=== PATIENT | female | born 1980 | race Caucasian/White ===

== ENCOUNTER 2020-07-08 09:26 | Outpatient (CLI) | payer BC ==
[~2020-07-08 09:26] MED LIST: FERUMOXYTOL (NON-ESRD) 510 MG/NS 100 ML IV PRN; NORMAL SALINE 250 ML IV PRN
[2020-07-08 10:00] VITALS: BP 116/81
== END 2020-07-08 11:00 | disposition home or self-care (01) ==
LOC: II 09:26 → 5TH 09:59 → II 11:00
PROVIDERS: ATTEND Internal Medicine Hematology & Oncology
DX: D50.9 Iron deficiency anemia, unspecified (principal); K90.9 Intestinal malabsorption, unspecified
CPT/HCPCS: 96365; Q0138; J7050

== ENCOUNTER 2020-07-15 09:00 | Outpatient (CLI) | payer BC ==
[2020-07-15 09:35] VITALS: BP 119/73
== END 2020-07-15 10:30 | disposition home or self-care (01) ==
LOC: II 09:00 → 5TH 09:12 → II 10:30
PROVIDERS: ATTEND Internal Medicine Hematology & Oncology
DX: D50.9 Iron deficiency anemia, unspecified (principal); K90.9 Intestinal malabsorption, unspecified
CPT/HCPCS: 96365; Q0138; J7050

== ENCOUNTER 2020-10-01 07:57 | Outpatient (CLI) | payer BC ==
[2020-10-01 08:06] VITALS: BP 112/78
--- OUTSIDE RECORDS SUMMARY | 2020-10-04 08:55 | XMS REPORT ---
:1980 [facility] [address] [place] [address] Care Team Providers Name Role Phone Susi Ruiz M.D. Attending Clinician Unavailable Allergies, Adverse Reactions, Alerts Allergy Name Allergy Status Severity Reaction(s) Onset Inactive Treat ing Comments Type Date Date Clinician Acetaminophen Allergy to Active substance Amoxicillin Allergy to Active substance Codeine Allergy to Active substance Hydrocodone Allergy to Active substance acetaminophen Allergy to Active Drug (Finding) augmentin Allergy to Active Drug (Finding) Loratadine Allergy to Active Mild Rash substance Loratadine Allergy to Active Skin (Ingredient(s Drug Rashes/Hives ): (Finding) loratadine) Penicillins Allergy to Active substance tessalon Allergy to Active perle Drug (Finding) Potassium Allergy to Active substance Medications Ordered Filled Start Stop Current Ordering Indication Dosage Frequency Signature Comments Components Medication Medication Date Date Medication? Clinician (SIG) Name Name Diane 2020- Yes 510mg 07-08 00:00: 00:00 00 :00 Sodium 2019-0 2020- Yes 250mL Chloride 07-08 00:00: 00:00 00 :00 Folic Acid 2019-0 Yes 1 07-02 00:00: 00 folic acid No folic acid 1 mg tablet 1 mg tablet Wellbutrin No 1 Q1D Wellbutrin XL 150 mg XL 150 mg 24 hr 24 hr tablet, tablet, extended extended release release Take 1 Take 1 tablet tablet every day every day by oral by oral route for route for 30 days. 30 days. Wellbutrin No 1 BID Wellbutrin SR 150 mg SR 150 mg tablet, 12 tablet, 12 hr hr sustained-r sustained- elease Take release 1 tablet Take 1 twice a day tablet by oral twice a route for day by 30 days. oral route Take once for 30 nightly for days. Take the first 3 once days. Then nightly Increase for the dose to first 3 once in the days. Then morning and Increase once dose to nightly. once in Stop the smoking in morning 5-7 days and once from start nightly. of taking Stop medication. smoking in 5-7 days from start of taking medication . B-12 Yes 1 Ibuprofen Yes 1 Vitron-C Yes 1 Problems Condition Condition Condition Status Onset Resolution Last Treatin g Comments Name Details Category Date Date Treatment Clinician Date Cobalamin Cobalamin Problem Active deficiency Deficiency 8-19 00:00: 00 Nutritional Nutritional Diagnosis active anemia anemia 8-14 00:00: 00 Intestinal Intestinal Diagnosis active malabsorpti malabsorpti 8-14 on on 00:00: 00 Iron Iron Diagnosis active deficiency deficiency 8-14 anemia anemia 00:00: 00 Folic acid Folic Acid Problem Active deficiency Deficiency 7-08 00:00: 00 Anemia Anemia Problem Active 708 00:00: 00 Dysmenorrhe Dysmenorrhe Problem Active a a 7-08 00:00: 00 Fatigue Fatigue Problem Active 708 00:00: 00 Procedures Procedure Date / Time Performed Performing Clinician Leta chavez pulse oximetry (PROC) 2020-09-20 00:00:00 pulse oximetry (PROC) 2020-08-31 00:00:00 right knee surgery x3 lumbar surgery tubal ligation tonsillectomy Results Test Description Test Time Test Comments Text Results Atomic Results Result Comments Creatinine 2020-09-09 14:39:00 Test Item Value Reference Range Comments Creatinine (test code = Creatinine) 0.7300 mg/dL 0.5700-1.000 0 Cr Clearance (Est) (test code = Cr Clearance 118.5200 75. 0000-115.0000 (Est)) Glucose (test code = Glucose) 71.0000 mg/dL 65.0000-99.0000 BUN (test code = BUN) 8.0000 mg/dL 6.0000-24.0000 eGFR Trv-Viquofd-Azpzgwxx (test code = eGFR 103.0000 Eqf-Tubqdvg-Wzimbiji) eGFR -[place] (test code = eGFR 118.0000 -[place]) BUN/Creat Ratio (test code = BUN/Creat Ratio) 11.0000 9. 0000-23.0000 Sodium (test code = Sodium) 141.0000 mmol/L 134.0000-144.0000 Potassium (test code = Potassium) 4.2000 mmol/L 3.5000-5.2000 Chloride (test code = Chloride) 108.0000 mmol/L 96.0000-106.0000 CO2 (test code = CO2) 19.0000 mmol/L 20.0000-29.0000 Calcium (test code = Calcium) 9.6000 mg/dL 8.7000-10.2000 Protein, Total (test code = Protein, Total) 6.5000 g/dL 6.00 00-8.5000 Albumin (test code = Albumin) 4.6000 g/dL 3.8000-4.8000 Globulin (test code = Globulin) 1.9000 g/dL 1.5000-4.5000 A/G Ratio (test code = A/G Ratio) 2.4000 1.2000-2.2000 Bilirubin, Total (test code = Bilirubin, Total) 0.9000 mg/dL 0.0000-1.2000 Alkaline Phosphatase (test code = Alkaline 56.0000 39.00 00-117.0000 Phosphatase) AST (SGOT) (test code = AST (SGOT)) 11.0000 0.0000-40.00 00 ALT (SGPT) (test code = ALT (SGPT)) 8.0000 0.0000-32.00 00 Iron, Total (test code = Iron, Total) 122.0000 27.0000-15 9.0000 TIBC (test code = TIBC) 227.0000 250.0000-450.0000 UIBC (test code = UIBC) 105.0000 131.0000-425.0000 % Iron Saturation (test code = % Iron Saturation) 54.0000 % 15.0000-55.0000 Folate (test code = Folate) 6.2000 ng/mL Ferritin (test code = Ferritin) 50.0000 ng/mL 15.0000-150.0000 [id number] 13:16:00 Test Item Value Reference Range Comments WBC (test code = WBC) 10.0000 4.0000-10.0000 Lymphocytes % (test code = Lymphocytes %) 34.9000 % 22.400 0-43.6000 MID% (test code = MID%) 6.5000 % 1.2000-11.1999 Neutrophils % (test code = Neutrophils %) 58.6000 % 48.900 0-69.9000 Lymphocytes (test code = Lymphocytes) 3.4000 1.2000-3.2 000 MID (test code = MID) 0.8000 0.1000-1.1000 Neutrophils (test code = Neutrophils) 5.8000 1.5000-6.7 000 RBC (test code = RBC) 5.4000 3.7000-4.9000 HGB (test code = HGB) 15.3000 g/dL 11.2000-18.0000 HCT (test code = HCT) 44.8000 % 34.0000-44.0000 MCV (test code = MCV) 82.9000 fL 80.0000-94.0000 MCH (test code = MCH) 28.4000 pg 27.0000-34.0000 MCHC (test code = MCHC) 34.2000 g/dL 31.5000-36.0000 RDW (test code = RDW) 17.4000 11.0000-18.0000 PLT (test code = PLT) 268.0000 140.0000-440.0000 MPV (test code = MPV) 9.7000 fL 6.8000-10.6000 Lipid 1996 panel - Serum or [id number] 00:00:00 Test Item Value Reference Range Comments Cholesterol [Mass/volume] in Serum or 185 mg/dL <200 Plasma (test code = 2093-3) Cholesterol in HDL [Mass/volume] in Serum 36 mg/dL > or = 50 or Plasma (test code = 2085-9) Triglyceride [Mass/volume] in Serum or 182 mg/dL <150 Plasma (test code = 2571-8) Cholesterol in LDL [Mass/volume] in Serum 119 mg/dL (calc) or Plasma by calculation (test code = 93390-1) Cholesterol.total/Cholesterol.in HDL [Mass 5.1 (calc) <5.0 ratio] in Serum or Plasma (test code = 9830-1) Cholesterol non HDL [Mass/volume] in Serum 149 mg/dL (calc) <130 or Plasma (test code = 13036-3) Hemoglobin A1c/Hemoglobin.total in [id number] 00:00:00 Test Item Value Reference Range Comments Hemoglobin A1c/Hemoglobin.total in Blood 4.8 % of total HGB <5.7 (test code = 4548-4) Thyrotropin [Units/volume] in Serum or [id number] 00:00:00 Test Item Value Reference Range Comments Thyrotropin [Units/volume] in Serum or Plasma 0.92 mIU/L (test code = 3016-3) Folate+Cyanocobalamin [Interpretation] in Serum or [id number] 00:00:00 Test Item Value Reference Range Comments Cobalamin (Vitamin B12) [Mass/volume] in Serum or 304 pg/mL 200-1100 Plasma (test code = 2132-9) Folate [Mass/volume] in Serum or Plasma (test code 8.6 NG/mL = 2284-8) Lipid 1995 panel - Serum or [id number] 00:00:00 Test Item Value Reference Range Comments Cholesterol [Mass/volume] in Serum or 177 mg/dL <200 Plasma (test code = 2093-3) Cholesterol in HDL [Mass/volume] in Serum 31 mg/dL > or = 50 or Plasma (test code = 2085-9) Triglyceride [Mass/volume] in Serum or 297 mg/dL <150 Plasma (test code = 2571-8) Cholesterol in LDL [Mass/volume] in Serum 106 mg/dL (calc) or Plasma by calculation (test code = 00207-6) Cholesterol.total/Cholesterol.in HDL [Mass 5.7 (calc) <5.0 ratio] in Serum or Plasma (test code = 9830-1) Cholesterol in LDL/Cholesterol in HDL [Mass 3.4 (calc) Ratio] in Serum or Plasma (test code = 61654-8) Cholesterol non HDL [Mass/volume] in Serum 146 mg/dL (calc) <130 or Plasma (test code = 47856-1) iron + TIBC + ferritin, [id number] 00:00:00 Test Item Value Reference Range Comments Iron [Mass/volume] in Serum or Plasma 115 mcg/dL 40-190 (test code = 2498-4) Iron binding capacity [Mass/volume] in 219 mcg/dL (calc) 250-450 Serum or Plasma (test code = 2500-7) Iron saturation [Mass Fraction] in Serum 53 % (calc) 16-45 or Plasma (test code = 2502-3) Ferritin [Mass/volume] in Serum or Plasma 49 NG/mL 16-232 (test code = 2276-4) Comprehensive metabolic 2000 panel - Serum or [id number] 00:00:00 Test Item Value Reference Range Comments Glucose [Mass/volume] in Serum or Plasma 100 mg/dL 65-99 (test code = 2345-7) Urea nitrogen [Mass/volume] in Serum or 6 mg/dL 7-25 Plasma (test code = 3094-0) Creatinine [Mass/volume] in Serum or 0.73 mg/dL 0.50-1.10 Plasma (test code = 2160-0) Glomerular filtration rate/1.73 sq 102 mL/min/1.73m2 > or = 60 M.predicted [Volume Rate/Area] in Serum, Plasma or Blood by Creatinine-based formula (MDRD) (test code = 95118-3) Glomerular filtration rate/1.73 sq 119 mL/min/1.73m2 > or = 60 M.predicted among blacks [Volume Rate/Area] in Serum, Plasma or Blood by Creatinine-based formula (MDRD) (test code = 43742-3) Urea nitrogen/Creatinine [Mass Ratio] in 8 (calc) 6-22 Serum or Plasma (test code = 3097-3) Sodium [Moles/volume] in Serum or Plasma 142 mmol/L 135-146 (test code = 2951-2) Potassium [Moles/volume] in Serum or 4.0 mmol/L 3.5-5.3 Plasma (test code = 2823-3) Chloride [Moles/volume] in Serum or Plasma 109 mmol/L 98-11 0 (test code = 2075-0) Carbon dioxide, total [Moles/volume] in 24 mmol/L 20-32 Serum or Plasma (test code = 2027-9) Calcium [Mass/volume] in Serum or Plasma 9.7 mg/dL 8.6-10. 2 (test code = 17738-0) Protein [Mass/volume] in Serum or Plasma 6.5 g/dL 6.1-8.1 (test code = 2885-2) Albumin [Mass/volume] in Serum or Plasma 4.4 g/dL 3.6-5.1 (test code = 1751-7) Globulin [Mass/volume] in Serum by 2.1 g/dL (calc) 1.9-3.7 calculation (test code = 57970-7) Albumin/Globulin [Mass Ratio] in Serum or 2.1 (calc) 1.0-2. 5 Plasma (test code = 1759-0) Bilirubin.total [Mass/volume] in Serum or 0.5 mg/dL 0.2-1. 2 Plasma (test code = 1975-2) Alkaline phosphatase [Enzymatic 49 U/L 31-125 activity/volume] in Serum or Plasma (test code = 6768-6) Aspartate aminotransferase [Enzymatic 11 U/L 10-30 activity/volume] in Serum or Plasma (test code = 1920-8) Alanine aminotransferase [Enzymatic 9 U/L 6-29 activity/volume] in Serum or Plasma (test code = 1742-6) CBC W Auto Differential panel - [id number] 00:00:00 Test Item Value Reference Range Comments Leukocytes [#/volume] in Blood by Automated 8.2 thousand/uL 3.8- 10.8 count (test code = 6690-2) Erythrocytes [#/volume] in Blood by 5.35 million/uL 3.80-5.10 Automated count (test code = 789-8) Hemoglobin [Mass/volume] in Blood (test code 15.4 g/dL 11. 7-15.5 = 718-7) Hematocrit [Volume Fraction] of Blood by 47.2 % 35.0-45 .0 Automated count (test code = 4544-3) Erythrocyte mean corpuscular volume [Entitic 88.2 fL 80. 0-100.0 volume] by Automated count (test code = 787-2) Erythrocyte mean corpuscular hemoglobin 28.8 pg 27.0-33. 0 [Entitic mass] by Automated count (test code = 785-6) Erythrocyte mean corpuscular hemoglobin 32.6 g/dL 32.0-36. 0 concentration [Mass/volume] by Automated count (test code = 786-4) Erythrocyte distribution width [Ratio] by 19.2 % 11.0-1 5.0 Automated count (test code = 788-0) Platelets [#/volume] in Blood by Automated 273 thousand/uL 140-4 00 count (test code = 777-3) Platelet mean volume [Entitic volume] in 10.1 fL 7.5-12. 5 Blood by Zak (test code = 776-5) Neutrophils [#/volume] in Blood by Automated 4633 cells/uL 150 0-7800 count (test code = 751-8) Lymphocytes [#/volume] in Blood by Automated 2788 cells/uL 850 -3900 count (test code = 731-0) Monocytes [#/volume] in Blood by Automated 451 cells/uL 200-9 50 count (test code = 742-7) Eosinophils [#/volume] in Blood by Automated 271 cells/uL 15- 500 count (test code = 711-2) Basophils [#/volume] in Blood by Automated 57 cells/uL 0-200 count (test code = 704-7) Neutrophils/100 leukocytes in Blood by 56.5 % Automated count (test code = 770-8) Lymphocytes/100 leukocytes in Blood by 34.0 % Automated count (test code = 736-9) Monocytes/100 leukocytes in Blood by 5.5 % Automated count (test code = 5905-5) Eosinophils/100 leukocytes in Blood by 3.3 % Automated count (test code = 713-8) Basophils/100 leukocytes in Blood by 0.7 % Automated count (test code = 706-2) Thyroxine (T4) free [Mass/volume] in Serum or [id number] 00:00:00 Test Item Value Reference Range Comments Thyroxine (T4) free [Mass/volume] in Serum or 1.0 NG/dL 0. 8-1.8 Plasma (test code = 3024-7) Thyrotropin [Units/volume] in Serum or [id number] 00:00:00 Test Item Value Reference Range Comments Thyrotropin [Units/volume] in Serum or Plasma 0.92 mIU/L (test code = 3016-3) Folate+Cyanocobalamin [Interpretation] in Serum or [id number] 00:00:00 Test Item Value Reference Range Comments Cobalamin (Vitamin B12) [Mass/volume] in Serum or 304 pg/mL 200-1100 Plasma (test code = 2132-9) Folate [Mass/volume] in Serum or Plasma (test code 8.6 NG/mL = 2284-8) Lipid 1996 panel - Serum or [id number] 00:00:00 Test Item Value Reference Range Comments Cholesterol [Mass/volume] in Serum or 177 mg/dL <200 Plasma (test code = 2093-3) Cholesterol in HDL [Mass/volume] in Serum 31 mg/dL > or = 50 or Plasma (test code = 5-9) Triglyceride [Mass/volume] in Serum or 297 mg/dL <150 Plasma (test code = 2571-8) Cholesterol in LDL [Mass/volume] in Serum 106 mg/dL (calc) or Plasma by calculation (test code = 86105-8) Cholesterol.total/Cholesterol.in HDL [Mass 5.7 (calc) <5.0 ratio] in Serum or Plasma (test code = 9830-1) Cholesterol in LDL/Cholesterol in HDL [Mass 3.4 (calc) Ratio] in Serum or Plasma (test code = 54548-2) Cholesterol non HDL [Mass/volume] in Serum 146 mg/dL (calc) <130 or Plasma (test code = 25188-8) iron + TIBC + ferritin, [id number] 00:00:00 Test Item Value Reference Range Comments Iron [Mass/volume] in Serum or Plasma 115 mcg/dL 40-190 (test code = 2498-4) Iron binding capacity [Mass/volume] in 219 mcg/dL (calc) 250-450 Serum or Plasma (test code = 2500-7) Iron saturation [Mass Fraction] in Serum 53 % (calc) 16-45 or Plasma (test code = 2502-3) Ferritin [Mass/volume] in Serum or Plasma 49 NG/mL 16-232 (test code = 2276-4) Comprehensive metabolic 2000 panel - Serum or [id number] 00:00:00 Test Item Value Reference Range Comments Glucose [Mass/volume] in Serum or Plasma 100 mg/dL 65-99 (test code = 2345-7) Urea nitrogen [Mass/volume] in Serum or 6 mg/dL 7-25 Plasma (test code = 3094-0) Creatinine [Mass/volume] in Serum or 0.73 mg/dL 0.50-1.10 Plasma (test code = 2160-0) Glomerular filtration rate/1.73 sq 102 mL/min/1.73m2 > or = 60 M.predicted [Volume Rate/Area] in Serum, Plasma or Blood by Creatinine-based formula (MDRD) (test code = 47048-6) Glomerular filtration rate/1.73 sq 119 mL/min/1.73m2 > or = 60 M.predicted among blacks [Volume Rate/Area] in Serum, Plasma or Blood by Creatinine-based formula (MDRD) (test code = 06731-0) Urea nitrogen/Creatinine [Mass Ratio] in 8 (calc) 6-22 Serum or Plasma (test code = 3097-3) Sodium [Moles/volume] in Serum or Plasma 142 mmol/L 135-146 (test code = 2951-2) Potassium [Moles/volume] in Serum or 4.0 mmol/L 3.5-5.3 Plasma (test code = 2823-3) Chloride [Moles/volume] in Serum or Plasma 109 mmol/L 98-11 0 (test code = 2075-0) Carbon dioxide, total [Moles/volume] in 24 mmol/L 20-32 Serum or Plasma (test code = 2027-9) Calcium [Mass/volume] in Serum or Plasma 9.7 mg/dL 8.6-10. 2 (test code = 11239-7) Protein [Mass/volume] in Serum or Plasma 6.5 g/dL 6.1-8.1 (test code = 2885-2) Albumin [Mass/volume] in Serum or Plasma 4.4 g/dL 3.6-5.1 (test code = 1751-7) Globulin [Mass/volume] in Serum by 2.1 g/dL (calc) 1.9-3.7 calculation (test code = 28690-2) Albumin/Globulin [Mass Ratio] in Serum or 2.1 (calc) 1.0-2. 5 Plasma (test code = 1759-0) Bilirubin.total [Mass/volume] in Serum or 0.5 mg/dL 0.2-1. 2 Plasma (test code = 1974-2) Alkaline phosphatase [Enzymatic 49 U/L 31-125 activity/volume] in Serum or Plasma (test code = 6768-6) Aspartate aminotransferase [Enzymatic 11 U/L 10-30 activity/volume] in Serum or Plasma (test code = 1920-8) Alanine aminotransferase [Enzymatic 9 U/L 6-29 activity/volume] in Serum or Plasma (test code = 1742-6) CBC W Auto Differential panel - [id number] 00:00:00 Test Item Value Reference Range Comments Leukocytes [#/volume] in Blood by Automated 8.2 thousand/uL 3.8- 10.8 count (test code = 6690-2) Erythrocytes [#/volume] in Blood by 5.35 million/uL 3.80-5.10 Automated count (test code = 789-8) Hemoglobin [Mass/volume] in Blood (test code 15.4 g/dL 11. 7-15.5 = 718-7) Hematocrit [Volume Fraction] of Blood by 47.2 % 35.0-45 .0 Automated count (test code = 4544-3) Erythrocyte mean corpuscular volume [Entitic 88.2 fL 80. 0-100.0 volume] by Automated count (test code = 787-2) Erythrocyte mean corpuscular hemoglobin 28.8 pg 27.0-33. 0 [Entitic mass] by Automated count (test code = 785-6) Erythrocyte mean corpuscular hemoglobin 32.6 g/dL 32.0-36. 0 concentration [Mass/volume] by Automated count (test code = 786-4) Erythrocyte distribution width [Ratio] by 19.2 % 11.0-1 5.0 Automated count (test code = 788-0) Platelets [#/volume] in Blood by Automated 273 thousand/uL 140-4 00 count (test code = 777-3) Platelet mean volume [Entitic volume] in 10.1 fL 7.5-12. 5 Blood by Zak (test code = 776-5) Neutrophils [#/volume] in Blood by Automated 4633 cells/uL 150 0-7800 count (test code = 751-8) Lymphocytes [#/volume] in Blood by Automated 2788 cells/uL 850 -3900 count (test code = 731-0) Monocytes [#/volume] in Blood by Automated 451 cells/uL 200-9 50 count (test code = 742-7) Eosinophils [#/volume] in Blood by Automated 271 cells/uL 15- 500 count (test code = 711-2) Basophils [#/volume] in Blood by Automated 57 cells/uL 0-200 count (test code = 704-7) Neutrophils/100 leukocytes in Blood by 56.5 % Automated count (test code = 770-8) Lymphocytes/100 leukocytes in Blood by 34.0 % Automated count (test code = 736-9) Monocytes/100 leukocytes in Blood by 5.5 % Automated count (test code = 5905-5) Eosinophils/100 leukocytes in Blood by 3.3 % Automated count (test code = 713-8) Basophils/100 leukocytes in Blood by 0.7 % Automated count (test code = 706-2) Thyroxine (T4) free [Mass/volume] in Serum or [id number] 00:00:00 Test Item Value Reference Range Comments Thyroxine (T4) free [Mass/volume] in Serum or 1.0 NG/dL 0. 8-1.8 Plasma (test code = 3024-7) [id number] 17:08:55 Test Item Value Reference Range Comments Glucose (test code = Glucose) 83.0000 mg/dL 60.0000-115.0000 BUN (test code = BUN) 6.0000 mg/dL 5.0000-26.0000 Creatinine (test code = Creatinine) 0.6900 mg/dL 0.5000-1.500 0 Cr Clearance (Est) (test code = Cr 128.2100 75.0000-115.0 000 Clearance (Est)) Sodium (test code = Sodium) 141.0000 mmol/L 135.0000-148.0000 Potassium (test code = Potassium) 4.1000 mmol/L 3.5000-5.5000 Chloride (test code = Chloride) 108.0000 mmol/L 96.0000-109.0000 CO2 (test code = CO2) 24.0000 mmol/L 21.0000-32.0000 Calcium (test code = Calcium) 9.5000 mg/dL 8.5000-10.6000 Protein, Total (test code = Protein, 6.6000 g/dL 6.0000-8.50 00 Total) Albumin (test code = Albumin) 4.3000 g/dL 3.5000-5.5000 Globulin (test code = Globulin) 2.3000 g/dL 2.0000-4.5000 Bilirubin, Total (test code = Bilirubin, 0.4000 mg/dL 0.1000- 1.2000 Total) Alkaline Phosphatase (test code = Alkaline 55.0000 40.00 00-150.0000 Phosphatase) AST (SGOT) (test code = AST (SGOT)) 9.0000 0.0000-45.00 00 ALT (SGPT) (test code = ALT (SGPT)) 6.0000 0.0000-50.00 00 TSH (test code = TSH) 1.1100 0.3500-5.5000 Ferritin (test code = Ferritin) 3.0000 ng/mL 10.0000-291.0000 % Iron Saturation (test code = % Iron 5.0000 % 15.0000-55 .0000 Saturation) Iron, Total (test code = Iron, Total) 18.0000 40.0000-18 0.0000 TIBC (test code = TIBC) 359.0000 250.0000-450.0000 Vitamin B12 (test code = Vitamin B12) 276.0000 pg/mL 211.0000-9 11.0000 Folate (test code = Folate) 2.4000 ng/mL 2.7000-999.9000 [id number] 17:08:55 Test Item Value Reference Range Comments WBC (test code = WBC) 11.4000 4.0000-10.5000 HGB (test code = HGB) 11.7000 g/dL 11.5000-15.0000 HCT (test code = HCT) 37.0000 % 34.0000-44.0000 MCV (test code = MCV) 79.9000 fL 80.0000-98.0000 Platelet Count (test code = Platelet Count) 352.0000 140. 0000-415.0000 Assessments Condition Name Status Diagnosis Date Treating Clinici an Mixed hyperlipidemia Active 2020-09-03 15:25:49 Nicotine dependence with current use Active 2020-09-20 08:46:10 Anemia Active 2020-09-20 08:54:45 Mixed hyperlipidemia Active 2020-08-30 08:55:55 Impaired fasting glycemia Active 2020-08-30 08:56:26 Anemia Active 2020-08-30 08:56:58 Cobalamin deficiency Active 2020-08-30 08:56:59 Fatigue Active 2020-08-30 08:57:01 Folic acid deficiency Active 2020-08-30 08:57:02 Administrative reason for encounter Active 2020-08-31 1 0:05:07 Encounters Start End Encounter Admission Attending Care Care Encounter Date/Time Date/Time Type Type Clinicians Facility Department ID 2020-10-01 2020-10-01 Outpatient Asaad, Freddydave Freddy n [id number] 00:00:00 00:00:00 Susi n [facility] Medical Oncology Oncology [facility] 2020-09-21 2020[facility]09-[id number]00 [facility] On[facility] 2020-09-20 2020-09-20 Outpatient [facility] n [id number] 00:00:00 00:00:00 Medical Medical Oncology Oncology [facility] 2020-09-20 2020-09-20 [facility] [id number] 00:00:00 00:00:00 MarchTOÑITO: Immediate & Immediate & [address] [place] [id number], Ph. 2020-09-09 2020-09-09 Dr. Merle Ruiz n [id number] 00:00:00 00:00:00 [facility]i [facility] 2020-08-31 2020-08-31 [facility] [id number] 00:00:00 00:00:00 TOÑITO Sanchez: Immediate & Immediate & [address] [place] [id number], Ph. 2020-07-15 2020-07-15 Outpatient Merle Ruiz n [id number] 00:00:00 00:00:00 [facility] Medical Oncology Oncology [facility] 2020-07-08 2020-07-08 Outpatient Merle Ruiz n [id number] [facility] 2020-07-06 2020-07-06 Outpatient Merle Bloom n [id number] 00:00:00 00:00:00 [facility] Oncology Oncology [facility] 2020-07-05 2020-07-05 Outpatient Merle Bloom n [id number] 00:00:00 00:00:00 [facility] Oncology Oncology [facility] 2020-07-02 2020-07-02 Joseph Del[facility] 2 [id number] 00:00:00 [facility]00[facility] 2020-06-28 2020-06-28 Outpatient Merle Bloom n [id number] 00:00:00 00:00:00 [facility] Oncology Oncology [facility] 2020-06-18 2020-06-18 Outpatient Merle Bloom n [id number] 00:00:00 00:00:00 [facility] Oncology Oncology [facility] 2020-06-09 2020-06-09 Outpatient Merle ordonez [id number] 00:00:00 00:00:00 n Medical Medical Oncology [facility] 2020-05-19 2020-05-19 Outpatient Merle Bloom n [id number] 00:00:00 00:00:00 n [facility] Oncology Oncology [facility] Plan of Treatment Planned Activity Planned Date Details Comments Future Appointment 2020-10-21 08:00:00 Noelle Sanchez, [address] [place] [address]; , [place] [address] Social History Smoking Status Start Date Stop Date Unknown If Ever Smoked Current every day smoker 2020-09-09 00:00:00 2020-09-09 00:0 0:00 Social History Observation Description Sex Female Vital Signs Vital Name Observation Time Observation Value Comments BP Diastolic 2020-09-20 00:00:00 71 mm[Hg] Height 2020-09-20 00:00:00 67 [in_i] BMI (Body Mass Index) 2020-09-20 00:00:00 26 kg/m2 BP Systolic 2020-09-20 00:00:00 104 mm[Hg] Body Weight 2020-09-20 00:00:00 166.2 [lb_av] BP Diastolic 2020-08-31 00:00:00 71 mm[Hg] Height 2020-08-31 00:00:00 67 [in_i] BMI (Body Mass Index) 2020-08-31 00:00:00 25.6 kg/m2 BP Systolic 2020-08-31 00:00:00 110 mm[Hg] Body Weight 2020-08-31 00:00:00 163.6 [lb_av] BMI 2020-09-09 13:26:56 25.4100 BP stern 2020-09-09 13:26:56 95.0000 mm[Hg] Bdy height 2020-09-09 13:26:56 67.2000 [in_i] SaO2% BldA PulseOx 2020-09-09 13:26:56 98.0000 % Heart rate 2020-09-09 13:26:56 82.0000 /min Resp rate 2020-09-09 13:26:56 18.0000 /min BP sys 2020-09-09 13:26:56 129.0000 mm[Hg] Body temperature 2020-09-09 13:26:56 101.3000 [degF] Weight 2020-09-09 13:26:56 163.2000 [lb_av] BMI 2020-07-02 15:07:44 25.7200 BP stern 2020-07-02 15:07:44 82.0000 mm[Hg] Bdy height 2020-07-02 15:07:44 67.2000 [in_i] SaO2% BldA PulseOx 2020-07-02 15:07:44 98.0000 % Heart rate 2020-07-02 15:07:44 92.0000 /min Resp rate 2020-07-02 15:07:44 18.0000 /min BP sys 2020-07-02 15:07:44 124.0000 mm[Hg] Body temperature 2020-07-02 15:07:44 98.2000 [degF] Weight 2020-07-02 15:07:44 165.2000 [lb_av] Hospital Discharge Instructions 1. Mixed hyperlipidemia pulse oximetry (PROC) lipid panel, serum 2. Impaired fasting glycemia HbA1c (hemoglobin A1c), blood 3. Anemia 4. Cobalamin deficiency 5. Fatigue 6. Folic acid deficiency 7. Administrative reason for encounter Discussion Note Complexity of Patient Visit: Moderate [place] current active problems, medications required and patient education Face Time 20 minutes with >50% contact with Established Patient Reviewed pertinent diagnoses at length including counseling andreassurance. Discussed risks, potential side effects and benefits of current treatment plan and medications. All patient questions and concerns were addressed and answered. Patient verbalized understanding and agreement with treatment plans. Patient educational handouts: No information available.
== END 2020-10-01 09:00 | disposition home or self-care (01) ==
LOC: II 07:57 → 5TH 07:57 → II 09:00
PROVIDERS: ATTEND Internal Medicine Hematology & Oncology
DX: D50.9 Iron deficiency anemia, unspecified (principal); K90.9 Intestinal malabsorption, unspecified
CPT/HCPCS: 96365; Q0138; J7050

== ENCOUNTER 2020-10-08 07:58 | Outpatient (CLI) | payer BC ==
[2020-10-08 08:10] VITALS: BP 125/75
== END 2020-10-08 10:05 | disposition home or self-care (01) ==
LOC: II 07:58 → 5TH 08:00 → II 10:05
PROVIDERS: ATTEND Internal Medicine Hematology & Oncology
DX: D50.9 Iron deficiency anemia, unspecified (principal); K90.9 Intestinal malabsorption, unspecified
CPT/HCPCS: 96365; J7050; Q0138